=== PATIENT | female | born 1945 | race Two or more races ===

== ENCOUNTER 2018-09-03 09:30 | Inpatient (IN) | payer OTHER ==
[~2018-09-03] VITALS: Ht 157.5 cm; Wt 72.6 kg
[2018-09-03] MEDS ORDERED: LISINOPRIL20 MG PO (17:08)
[2018-09-03] MEDS ORDERED: SERTRALINE HCL50 MG PO (17:08)
[2018-09-03] MEDS ORDERED: NEURONTIN300 MG PO (17:08)
[2018-09-03] MEDS ORDERED: PLAVIX75 MG PO (17:08)
[2018-09-03] MEDS ORDERED: MONTELUKAST SOD10 MG PO (17:09)
[2018-09-03] MEDS ORDERED: OMEPRAZOLE20 M1 PO (17:09)
[2018-09-03] MEDS ORDERED: FELODIPINE ER5 MG PO (17:09)
== END 2018-09-14 14:56 | DRG 470 ==
LOC: O/R 09-10 05:28 → SURH 09-10 05:28 → RECOVERY 09-10 09:30 → SURH 09-10 10:15
PROVIDERS: ADMIT Orthopaedic Surgery
PROC: 0SRC0J9 Replacement of Right Knee Joint with Synthetic Substitute, Cemented, Open Approach (ICD-10-PCS; principal; 2018-09-10 10:15)
PROC: B246ZZZ Ultrasonography of Right and Left Heart (ICD-10-PCS; 2018-09-11)
DX: M17.11 Unilateral primary osteoarthritis, right knee (principal); D62 Acute posthemorrhagic anemia; I10 Essential (primary) hypertension